=== PATIENT | male | born 1990 | race Caucasian/White ===

== ENCOUNTER 2020-03-10 09:43 | Emergency (ER) | payer MEDICAID ==
[~2020-03-10] VITALS: Ht 185.4 cm; Wt 116.1 kg
[2020-03-10 09:49] VITALS: Ht 185.4 cm; Wt 116.1 kg
[2020-03-10 10:39] LABS: BASOPHIL % 0.7 % (0-2); PLATELET COUNT 164 x10^3mcL (130-400)
[2020-03-10 10:45] LABS: RED CELL DISTRIBUTION WIDTH 14.8 % (11.5-14.5)
[2020-03-10 11:36] LABS: CALCIUM 8.7 mg/dL (8.5-10.1); CARBON DIOXIDE 30.2 mmol/L (21-32); CHLORIDE SERUM 100 mmol/L (98-107); CREATININE SERUM 0.8 mg/dL (0.7-1.3); GFR1 > 60 mL/min; GLUCOSE SERUM 264 mg/dL (74-106); POTASSIUM SERUM 4.1 mmol/L (3.5-5.1); SODIUM SERUM 138 mmol/L (136-145)
[2020-03-10 11:41] LABS: ALBUMIN 3.8 g/dL (3.4-5.0); ALKALINE PHOSPHATASE 206 U/L (46-116); ALT/SGPT 141 U/L (16-63); AST/SGOT 69 U/L (15-37); BILIRUBIN TOTAL 0.5 mg/dL (0.20-1.00); TOTAL PROTEIN, SERUM 7.2 g/dL (6.4-8.2)
[2020-03-10 12:20] VITALS: BP 120/68
== END 2020-03-10 12:20 | disposition home or self-care (01) ==
LOC: ED 09:43
PROVIDERS: Student in an Organized Health Care Education/Training Program
DX: N48.1 Balanitis (principal); E11.65 Type 2 diabetes mellitus with hyperglycemia; Z88.1 Allergy status to other antibiotic agents
CPT/HCPCS: 82962